=== PATIENT | male | born 1970 | race Caucasian/White ===

== ENCOUNTER 2024-05-12 12:14 | Outpatient (CLI) | payer OTHER, MEDICAID | END 2024-05-12 12:15 | disposition home or self-care (01) | LOC: CSHULT 12:14 | PROVIDERS: ATTEND Student in an Organized Health Care Education/Training Program | DX: R14.0 Abdominal distension (gaseous) (principal); K76.9 Liver disease, unspecified | CPT/HCPCS: 76700 ==